=== PATIENT | female | born 1965 | race Caucasian/White ===

== ENCOUNTER 2018-06-13 20:47 | Emergency (ER) | payer OTHER ==
[2018-06-13 21:11] VITALS: BP 120/75; PULSE 82; TEMP 98.8; BMI 21.7
--- NOTE | 2018-06-13 21:11 | PDOC ---
Rapid Medical Evaluation Time Seen by Provider: 06/13/18 21:08 Medical Evaluation: 06/13/18 21:09 Pt presents to the ED with rash to her inner legs for 5 days. Using Vagisil to the area with little relief of symptoms. Now states that she has some vaginal itching. Exam: AAOX3, VSS, ambulatory Orders: Nothing Pt to proceed to ED for further evaluation Discharge Disposition - Diagnosis Rash - Referrals - Patient Instructions - Post Discharge Activity
--- NOTE | 2018-06-13 21:51 | PDOC ---
History of Present Illness - General Chief Complaint: Rash Stated Complaint: RASH Time Seen by Provider: 06/13/18 21:08 History Source: Patient Exam Limitations: Clinical Condition - History of Present Illness Initial Comments: 06/13/18 21:46 Patient with no significant past medical history presenting with complain of rash and itchiness to bilateral groin area which has been persistent for 2 days and is not responding to [id number] vagisil to medication. Patient reported the rash as red rash which is very itchy and spreading from scratching . denies any other symptoms Timing/Duration: other (2 days) Past History - Past Medical History Allergies/Adverse Reactions: Allergies Allergy/AdvReac Type Severity Reaction Status Date / Time No Known Allergies Allergy Verified 06/13/18 21:11 Home Medications: Ambulatory Orders Clotrimazole/Betamet Diprop [Lotrisone Cream (Small Tube)] 1 applic TP BID 7 Days #1 tube 06/13/18 Fluconazole [Diflucan] 150 mg PO ONCE #2 tablet 06/13/18 COPD: No Other medical history: denies - Immunization History Immunization Up to Date: Yes - Suicide/Smoking/Psychosocial Hx Smoking History: Never smoked Have you smoked in the past 12 months: No Information on smoking cessation initiated: No Hx Alcohol Use: No Drug/Substance Use Hx: No Review of Systems - Review of Systems Able to Perform ROS?: Yes Is the patient limited Y[place] proficient: No Constitutional: No: Chills, Diaphoresis, Fever, Loss of Appetite, Malaise, Night Sweats, Weakness, Weight Stable, Unintentional Wgt. Loss, Unexplained wgt Loss, Other HEENTM: No: Eye Pain, Blurred Vision, Tearing, Recent change in vision, Double Vision, Cataracts, Ear Pain, Ocular Prothesis, Ear Discharge, Nose Pain, Nose Congestion, Tinnitus, Nose Bleeding, Hearing Loss, Throat Pain, Throat Swelling , Mouth Pain, Dental Problems, Difficulty Swallowing, Mouth Swelling, Other Respiratory: No: Cough, Orthopnea, Shortness of Breath, SOB with Exertion, SOB at Rest, Stridor, Wheezing, Productive cough, Hemoptysis, Other Cardiac (ROS): No: Chest Pain, Edema, Irregular Heart Rate, Lightheadedness, Palpitations, Syncope, Chest Tightness, Other ABD/GI: No: Abdominal Distended, Abd. Pain w/ defecation, Blood Streaked Bowels , Constipated, Diarrhea, Difficulty Swallowing, Nausea, Poor Appetite, Poor Fluid Intake, Rectal Bleeding, Vomiting, Indigestion, Abdominal cramping, Tarry Stools, Other Musculoskeletal: No: Back Pain, Gout, Joint Pain, Joint Swelling, Muscle Pain, Muscle Weakness, Neck Pain, Joint Stiffness, Other Integumentary: Yes: Pruritus, Rash (b/l inguinal areas) All Other Systems: Reviewed and Negative *Physical Exam - Vital Signs Last Vital Signs Temp Pulse Resp BP Pulse Ox 98.8 F 82 20 120/75 99 06/13/18 21:09 06/13/18 21:09 06/13/18 21:09 06/13/18 21:09 06/13/18 21:09 - Physical Exam Comments: 06/13/18 21:52 GENERAL: Well developed, well nourished. Awake and alert. No acute distress. HEENT: Normocephalic, atraumatic. PERRLA, EOMI. No conjunctival pallor. Sclera are non- icteric. Moist mucous membranes. Oropharynx is clear. NECK: Supple. Full ROM. No JVD. Carotid pulses 2+ and symmetric, without bruits. No thyromegaly. No lymphadenopathy. CARDIOVASCULAR: Regular rate and rhythm. No murmurs, rubs, or gallops. Distal pulses are 2+ and symmetric. PULMONARY: No evidence of respiratory distress. Lungs clear to auscultation bilaterally. No wheezing, rales or rhonchi. ABDOMINAL: Soft. Non-tender. Non-distended. No rebound or guarding. No organomegaly. Normoactive bowel sounds. MUSCULOSKELETAL Normal range of motion at all joints. No bony deformities or tenderness. No CVA tenderness. EXTREMITIES: No cyanosis. No clubbing. No edema. No calf tenderness. SKIN: Moderate erythematous rash on bilateral inguinal area with moderate excoriations consistent with tinea cruris NEUROLOGICAL: Alert, awake, appropriate. Cranial nerves 2-12 intact. No deficits to light touch and temperature in face, upper extremities and lower extremities. No motor deficits in the in face, upper extremities and lower extremities. Normoreflexic in the upper and lower extremities. Normal speech. Toes are down- going bilaterally. Gait is normal without ataxia. PSYCHIATRIC: Cooperative. Good eye contact. Appropriate mood and affect. General Appearance: Yes: Nourished, Appropriately Dressed. No: Apparent Distress Medical Decision Making - Medical Decision Making 06/13/18 21:53 Patient with no significant past medical history present with complain of rash and itching to bilateral groin area. Symptoms likely tinea cruris. Patient will be treated with topical Lotrisone and Diflucan oral with dermatology follow-up *DC/Admit/Observation/Transfer Diagnosis at time of Disposition: Rash, Tinea cruris - Discharge Dispostion Disposition: HOME Decision to Admit order: No - Prescriptions Prescriptions: Clotrimazole/Betamet Diprop [Lotrisone Cream (Small Tube)] 1 applic TP BID 7 Days #1 tube Fluconazole [Diflucan] 150 mg PO ONCE #2 tablet - Referrals Referrals: Dank Mar MD [Non Staff, Medical] - - Patient Instructions Printed Discharge Instructions: Tinea Cruris: [facility] Acharya Itch - Post Discharge Activity
== END 2018-06-13 22:07 | disposition home or self-care (01) ==
LOC: JERFT 20:47
DX: B35.6 Tinea cruris (principal)
CPT/HCPCS: 99281-25